=== PATIENT | male | born 1940 | race Caucasian/White ===

== ENCOUNTER 2025-04-29 08:31 | Day surgery (SDC) | payer MEDICARE, SELFPAY ==
--- OUTSIDE RECORDS SUMMARY | 2025-04-08 09:59 | XMS_ITS | Clinical Summary ---
Author Organization [facility] Address [address] [address] Phone Care Team Providers Care Cosmetic Dentist Name Role Phone Peter Vasquez MD Primary Care Provider [phone] Allergies No known active allergies Medications atorvastatin (LIPITOR) 20 mg tablet Take 1 tablet (20 mg total) by mouth. 10/22/2013 Active dilTIAZem CD (CARDIZEM CD) 180 mg 24 hr capsule Take 1 capsule (180 mg total) by mouth 1 (one) time each day. 09/19/2023 Active glipiZIDE (GLUCOTROL XL) 2.5 mg 24 hr tablet Take 1 tablet (2.5 mg total) by mouth. Active irbesartan (AVAPRO) 75 mg tablet Take 1 tablet (75 mg total) by mouth. 10/22/2013 Active metFORMIN (GLUCOPHAGE) 850 mg tablet Take 1 tablet (850 mg total) by mouth. 09/01/2017 Active warfarin (COUMADIN) 5 mg tablet Take 1 tablet (5 mg total) by mouth. 10/22/2013 Active Active Problems Problem Noted Date Diagnosed Date TIA (transient ischemic attack) 09/09/2023 Overview (08/28/2024): Last Assessment & Plan: Patient was hospitalized at [facility] for sudden onset of altered mental status. CT a showed no proximal occlusion or high-grade stenosis. MRI of the brain revealed no evidence of restricted diffusion to suggest acute infarct. Patient has since followed up with his primary care physician who has referred him to follow-up with neurology in the setting of ongoing forgetfulness, and unsteady gait. His last lipid profile in July 2023 revealed a total cholesterol of 132, triglycerides 55, HDL of 55 and LDL of 66. He will continue on his current dose of Lipitor 20mg. Assessment & Plan (09/26/2024 2:09 PM EST): Patient with atrial fibrillation that is rate controlled and anticoagulated. 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 Patient denies shortness of breath, dizziness, lightheadedness or syncope. He will monitor for symptoms listed above and call our office should he begin to notice increased frequency. Surveillance echocardiogram annually to evaluate progression of dilatation. Mitral regurgitation 01/29/2021 Overview (08/28/2024): Last Assessment & Plan: Patient has moderate to moderately severe mitral insufficiency his EF is decreased slightly but there has been no significant increase in LV end-diastolic or end-systolic diameters. We did wait 6 months continue medical therapy and reassess before we start discussing the possible need for intervention on the valve he is completely asymptomatic. Assessment & Plan (09/26/2024 2:09 PM EST): The patient's most recent echo in August shows a EF of 55% but is unable to accurately assess EF because of the A-fib. The patient's MR is moderate to severe with prolapse of the posterior leaflet. Pulmonary systolic pressures are acceptable. In some views the EF is less than 50% the left ventricular end diastolic diameter is 6.5 cm and systolic diameter is 5.2 cm were starting to see some dilatation of the left ventricle patient has severe mitral insufficiency secondary to prolapse of the posterior leaf of the mitral valve. His left ventricle is dilated and his EF is starting to fall. I have explained to the patient and his daughters who accompanied him that we start to see a decrease in LV systolic function especially less than 60% and dilatation of left ventricle in a patient with significant mitral regurgitation due to mitral valve prolapse the recommendation is to repair the valve before the patient becomes symptomatic because once the patient becomes symptomatic the repair does not necessarily bring the patient's ejection fraction and symptoms back to baseline it simply helps to prevent it from worsening I reinforced this. Unfortunately the patient's family has ramped down the patient's activity level and not letting him do anything so we really cannot tell me whether he is having a progressive symptomatology. The patient is getting a stress echo so I get some sense of what his exercise tolerance is this may be clouded by issues of orthopedic problems but at least they will give us some sense of his functional capacity. I still have recommended to them that they consider an elective repair of this valve before things worsen. Atrial fibrillation (CMS/HCC V24, CMS/HCC V28) 0 01/29/2021 Overview (08/28/2024): Last Assessment & Plan: Patient is in A-fib remains completely unaware of the arrhythmia Remains anticoagulated Assessment & Plan (09/26/2024 10:12 AM EST): Orders: ECG 12 lead Pulse oximetry, spot Stress echocardiogram (TTE) exercise with PRN contrast, bubble, strain, and 3D order panel; Future Encounters Date Type Department Care Team Description 02/08/[address] [facility] Cardiology [address] [place] [address] Peter Perez MD Atrial fibrillation, unspecified type (CMS/HCC V24, CMS/HCC V28) 02/01/[address] [facility] Cardiology [place] [address] [place] [address] Peter Perez MD Atrial fibrillation, unspecified type (CMS/HCC V24, CMS/HCC V28) 01/25/[address] [place] [phone] Peter Perez MD Atrial fibrillation, unspecified type (CMS/HCC V24, CMS/HCC V28) 01/22/2025 Lab Requisition [facility] [address] [place] [phone] Robert Hale MD Encounter for other general examination 01/18/2025 Lab [facility] [address] [place] [phone] Peter Perez MD Atrial fibrillation, unspecified type (CMS/HCC V24, CMS/HCC V28) 01/12/2025 Lab Requisition [facility] Lab [address] [place] [place] [address] Robert Hale MD Encounter for other general examination 01/11/2025 Lab [place] [address] [place] [address] Peter Perez MD Atrial fibrillation, unspecified type (CMS/HCC V24, CMS/HCC V28) from Last 3 Months Medical History Medical History Date Comments Atrial fibrillation (CMS/HCC V24, CMS/HCC V28) 01/29/2021 Last Assessment & Plan: Asmita ent is in A-fib remains completely unaware of the arrhythmia Remains anticoagulated Social History Tobacco Use Types Packs/Day Years Used Date Smoking Tobacco: Former Cigarettes Smokeless Tobacco: Former Tobacco Cessation:Counseling Given: Not Answered Alcohol Use Standard Drinks/Week Comments Yes 0 (1 standard drink = 0.6 oz pur e alcohol) Rarely Sex and Gender Information Value Date Recorded Sex Assigned at Male 10/12/2024 12:14 PM EST Legal Sex Male 8:53 PM EST Gender Identity Male 10/12/2024 12:14 PM EST Sexual Orientation Straight 10/12/2024 12 :14 PM EST Obstetrics History Last Filed Vital Signs Vital Sign Reading Time Taken Comments Blood Pressure 87/53 10/12/2024 4:45 PM EST Pulse 85 10/12/2024 4:45 PM EST Temperature 36.8 ??C (98.3 ??F) 10/12/2024 1 2:51 PM EST Respiratory Rate 14 10/12/2024 4:45 PM EST Oxygen Saturation 98% 10/12/2024 4:45 PM EST Inhaled Oxygen Concentration - - Weight 81.6 kg (179 lb 14.3 oz) 10/12/2024 4:20 PM EST Height 188 cm (6' 2.02 ) 10/12/2024 4:20 PM EST Body Mass Index 23.09 10/12/2024 4:20 PM EST Plan of Treatment Health Maintenance Due Date Last Done Comments Diabetes: Annual Foot Exam 1950 Diabetes: Annual Retina Eye Exam 1950 RSV Immunization Adult Patients (1 - 1-dose 75+ series) 2014 Zoster Vaccines (1 of 2) 08/13/2018 06/18/2018, 04/21 Cholesterol Screening (Lipid Panel) 10/30/2022 Depression Screening 10/30/2022 Falls Risk Assessment 10/30/2022 Social Influencers of Health Screening 10/30/2022 Medicare Annual Wellness Visit 08/17/2024 08/17/2023 Diabetes: Annual Urine Albumin-Creatinine Ratio (uACR) 09/26/2024 Diabetes: Blood Sugar Control Test (HGBA1C) 09/26/2024 COVID-19 Vaccine (5 - Pfizer risk season) 2025 07/30/2024, 08/26/2023, 08/03/2022, Additional history exists Diabetes: Annual GFR (Glomerular Filtration Rate) 01/22/2026 01/22/2025, 01/12/2025 Hypertension/CHF/CAD Annual BMP Blood Test 01/22/2026 01/22/2025, 01/12/2025 DTaP,Tdap,and Td Vaccines (5 - Td or Tdap) 02/03/2032 02/02/2022, 06/03/2006, 11/21/2005, Additional history exists Pneumococcal Vaccine: 50+ Years Completed 08/28/2019, 10/14/2015, 10/01/2014, Additional history exists Influenza Vaccine Completed 07/30/2024, , 08/03/2022, Additional history exists HIB Vaccines Aged Out No longer eligi ble based on patient's age to complete this topic HPV Vaccines Aged Out No longer eligi ble based on patient's age to complete this topic Hepatitis A Vaccines Aged Out No long er eligible based on patient's age to complete this topic Hepatitis B Vaccines Aged Out No long er eligible based on patient's age to complete this topic IPV Vaccines Aged Out No longer eligi ble based on patient's age to complete this topic MMR Vaccines Aged Out No longer eligi ble based on patient's age to complete this topic Meningococcal ACWY Vaccine Aged Out N o longer eligible based on patient's age to complete this topic Meningococcal B Vaccine Aged Out No l onger eligible based on patient's age to complete this topic RSV Immunization Patients Under 20 months Aged Out No longer eligible based on patient's age to complete this topic Varicella Vaccines Aged Out No longer eligible based on patient's age to complete this topic Procedures Procedure Name Priority Date/Time Associated Diagnosis Comments PROTHROMBIN TIME WITH INR Routine 02/04/2025 7:24 AM EDT Atrial fibrillation, unspecified type ([facility] V24, [facility] V28) COMPLETE BLOOD COUNT Routine 01/22/2025 5:12 AM EST Encounter for other general examination BASIC METABOLIC PANEL Routine 01/22/2025 5:12 AM EST Encounter for other general examination CBC WITH AUTO DIFFERENTIAL Routine 01/12/2025 6:30 AM EST Encounter for other general examination MAGNESIUM Routine 01/12/2025 6:30 AM EST Encounter for other general examination CBC AND DIFFERENTIAL Routine 01/12/2025 6:30 AM EST Encounter for other general examination COMPREHENSIVE METABOLIC PANEL Routine 01/12/2025 6:30 AM EST Encounter for other general examination from Last 3 Months Results * (ABNORMAL) Prothrombin time with INR (02/04/2025 7:24 AM EDT) International Normalized Ratio (INR) 3.6(H) 0.9 - 1.1 [facility] 1 Prothrombin Time 33.4(H) 9.2 - 11.4 SEC [facility] 1 Blood Venous blood specimen / Unknown 02/04/2025 7:24 AM EDT 02/04/2025 Narrative [facility] 1 - 02/04/2025 4:39 PM EDT Performed at: ??[address] - [address] ??[id number] Jewelry Sorter: Simba Cadena MD, Phone: ??[phone] us Peter Perez MD LAB BLOOD ORDERABLES Final Res ult [facility] 1 * (ABNORMAL) Complete blood count (01/22/2025 5:12 AM EST) WBC 4.0(L) 4.8 - 10.8 K/mcL LAB HEMETOLOGY METHOD 01/22/2025 10:51 AM [facility] RBC 3.10(L) 4.50 - 5.50 M/mcL LAB HEMETOLOGY METHOD 01/22/2025 10:51 AM [facility] LAB Hemoglobin 10.6(L) 13.5 - 17.5 g/dL LAB HEMETOLOGY METHOD 01/22/2025 10:51 AM [facility] LAB Hematocrit 32.3(L) 42.0 - 54.0 % LAB HEMETOLOGY METHOD 01/22/2025 10:51 AM [facility] LAB MCV 105.9(H) 79.0 - 98.0 FL LAB HEMETOLOGY METHOD 01/22/2025 10:51 AM [facility] LAB MCH 34.8(H) 27.0 - 32.0 pcg LAB HEMETOLOGY METHOD 01/22/2025 10:51 AM [facility] LAB MCHC 32.8 32.0 - 37.0 g/dL LAB HEMETOLOGY METHOD 01/22/2025 10:51 AM [facility] LAB RDW 13.1 11.0 - 15.0 % LAB HEMETOLOGY METHOD 01/22/2025 10:51 AM [facility] Platelets 171 130 - 400 K/mcL LAB HEMETOLOGY METHOD 01/22/2025 10:51 AM [facility] LAB MPV 9.9 7.0 - 11.0 FL LAB HEMETOLOGY METHOD 01/22/2025 10:51 AM EST [facility] NRBC 0.0 <1.0 % LAB HEMETOLOGY METHOD 01/22/2025 10:51 AM EST [facility] NRBC Absolute 0.00 <0.10 K/mcL LAB HEMETOLOGY METHOD 01/22/2025 10:51 AM EST [facility] Blood Venous blood specimen / Unknown Venipuncture / Unknown 01/22/2025 5:12 AM EST 01/22/2025 9:49 AM EST us Robert Hale MD LAB BLOOD ORDERABLES Final Res ult [facility] [address] [place] [address], * (ABNORMAL) Basic metabolic panel (01/22/2025 5:12 AM EST) Sodium 139 133 - 145 mmol/L LAB CHEMISTRY METHOD 01/22/2025 10:52 AM [facility] Potassium 4.5 3.5 - 5.5 mmol/L LAB CHEMISTRY METHOD 01/22/2025 10:52 AM [facility] Chloride 107 96 - 110 mmol/L LAB CHEMISTRY METHOD 01/22/2025 10:52 AM [facility] CO2 22 21 - 32 mmol/L LAB CHEMISTRY METHOD 01/22/2025 10:52 AM [facility] Anion Gap 10 3 - 11 LAB CHEMISTRY METHOD 01/22/2025 10:52 AM [facility] Glucose 104(H) 70 - 100 mg/dL LAB CHEMISTRY METHOD 01/22/2025 10:52 AM [facility] BUN 21 5 - 25 mg/dL LAB CHEMISTRY METHOD 01/22/2025 10:52 AM [facility] Creatinine 1.10 0.70 - 1.30 mg/dL LAB CHEMISTRY METHOD 01/22/2025 10:52 AM [facility] LAB eGFR 66 >=60 mL/min/1. 73m2 LAB CHEMISTRY METHOD 01/22/2025 10:52 AM [facility] LAB Comment:Calculation based on the??Chronic Kidney Disease Epidemiology Collaboration (CKD-EPI) equation refit??without adjustment for race. BUN/Creatinine Ratio 19.1 LAB CHEMISTRY METHOD 01/22/2025 10:52 AM [facility] Calcium 8.8 8.5 - 10.5 mg/dL LAB CHEMISTRY METHOD 01/22/2025 10:52 AM [facility] Blood Venous blood specimen / Unknown Venipuncture / Unknown 01/22/2025 5:12 AM EST 01/22/2025 9:49 AM EST us Robert Hale MD LAB BLOOD ORDERABLES Final Res ult [facility] [address] [place] [address], * (ABNORMAL) CBC auto differential (01/12/2025 6:30 AM EST) WBC 5.7 4.8 - 10.8 K/mcL LAB HEMETOLOGY METHOD 01/12/2025 11:44 AM [facility] RBC 3.40(L) 4.50 - 5.50 M/mcL LAB HEMETOLOGY METHOD 01/12/2025 11:44 AM [facility] Hemoglobin 11.5(L) 13.5 - 17.5 g/dL LAB HEMETOLOGY METHOD 01/12/2025 11:44 AM [facility] Hematocrit 35.1(L) 42.0 - 54.0 % LAB HEMETOLOGY METHOD 01/12/2025 11:44 AM [facility] LAB MCV 104.5(H) 79.0 - 98.0 FL LAB HEMETOLOGY METHOD 01/12/2025 11:44 AM [facility] MCH 34.2(H) 27.0 - 32.0 pcg LAB HEMETOLOGY METHOD 01/12/2025 11:44 AM [facility] LAB MCHC 32.8 32.0 - 37.0 g/dL LAB HEMETOLOGY METHOD 01/12/2025 11:44 AM [facility] RDW 12.5 11.0 - 15.0 % LAB HEMETOLOGY METHOD 01/12/2025 11:44 AM [facility] Platelets 120(L) 130 - 400 K/mcL LAB HEMETOLOGY METHOD 01/12/2025 11:44 AM [facility] MPV 10.9 7.0 - 11.0 FL LAB HEMETOLOGY METHOD 01/12/2025 11:44 AM [facility] NRBC 0.0 <1.0 % LAB HEMETOLOGY METHOD 01/12/2025 11:44 AM [facility] NRBC Absolute 0.00 <0.10 K/mcL LAB HEMETOLOGY METHOD 01/12/2025 11:44 AM [facility] Neutrophils Relative 71.6 % LAB HEMETOLOGY METHOD 01/12/2025 11:44 AM [facility] Lymphocytes Relative 11.1 % LAB HEMETOLOGY METHOD 01/12/2025 11:44 AM [facility] Monocytes Relative 10.2 % LAB HEMETOLOGY METHOD 01/12/2025 11:44 AM [facility] Eosinophils Relative 6.2 % LAB HEMETOLOGY METHOD 01/12/2025 11:44 AM [facility] Basophils Relative 0.7 % LAB HEMETOLOGY METHOD 01/12/2025 11:44 AM [facility] Immature Granulocytes Relative 0.2 % LAB HEMETOLOGY METHOD 01/12/2025 11:44 AM EST [facility] Neutrophils Absolute 4.05 1.50 - 7.00 K/[facility] LAB HEMETOLOGY METHOD 01/12/2025 11:44 AM [facility] Lymphocytes Absolute 0.63(L) 1.00 - 5.00 K/mcL LAB HEMETOLOGY METHOD 01/12/2025 11:44 AM EST [facility] Monocytes Absolute 0.58 0.20 - 1.00 K/[facility] LAB HEMETOLOGY METHOD 01/12/2025 11:44 AM EST [facility] Eosinophils Absolute 0.35 0.00 - 0.50 K/[facility] LAB HEMETOLOGY METHOD 01/12/2025 11:44 AM EST [facility] Basophils Absolute 0.04 0.00 - 0.20 K/mcL LAB HEMETOLOGY METHOD 01/12/2025 11:44 AM EST [facility] Immature Granulocytes Absolute 0.01 0.00 - 0.03 K/mcL LAB HEMETOLOGY METHOD 01/12/2025 11:44 AM EST [facility] Blood Venous blood specimen / Unknown Venipuncture / Unknown 01/12/2025 6:30 AM EST 01/12/2025 9:59 AM EST us Robert Hale MD LAB BLOOD ORDERABLES Final Res ult [facility]) [facility] [address] [place] [address], * Magnesium (01/12/2025 6:30 AM EST) Magnesium 1.9 1.9 - 2.6 mg/dL LAB CHEMISTRY METHOD 01/12/2025 11:56 AM EST [facility] Blood Venous blood specimen / Unknown Venipuncture / Unknown 01/12/2025 6:30 AM EST 01/12/2025 9:59 AM EST us Robert Hale MD LAB BLOOD ORDERABLES Final Res ult [facility] [address] [place] [address], [place] [phone] * (ABNORMAL) Comprehensive metabolic panel (01/12/2025 6:30 AM EST) Sodium 138 133 - 145 mmol/L LAB CHEMISTRY METHOD 01/12/2025 11:56 AM [facility] Potassium 3.8 3.5 - 5.5 mmol/L LAB CHEMISTRY METHOD 01/12/2025 11:56 AM [facility] Chloride 107 96 - 110 mmol/L LAB CHEMISTRY METHOD 01/12/2025 11:56 AM [facility] CO2 22 21 - 32 mmol/L LAB CHEMISTRY METHOD 01/12/2025 11:56 AM [facility] Anion Gap 9 3 - 11 LAB CHEMISTRY METHOD 01/12/2025 11:56 AM [facility] Glucose 122(H) 70 - 100 mg/dL LAB CHEMISTRY METHOD 01/12/2025 11:56 AM [facility] BUN 18 5 - 25 mg/dL LAB CHEMISTRY METHOD 01/12/2025 11:56 AM [facility] Creatinine 0.81 0.70 - 1.30 mg/dL LAB CHEMISTRY METHOD 01/12/2025 11:56 AM [facility] LAB eGFR 86 >=60 mL/min/1. 73m2 LAB CHEMISTRY METHOD 01/12/2025 11:56 AM [facility] LAB Comment:Calculation based on the??Chronic Kidney Disease Epidemiology Collaboration (CKD-EPI) equation refit??without adjustment for race. BUN/Creatinine Ratio 22.2 LAB CHEMISTRY METHOD 01/12/2025 11:56 AM [facility] Calcium 8.6 8.5 - 10.5 mg/dL LAB CHEMISTRY METHOD 01/12/2025 11:56 AM [facility] AST (SGOT) 31 10 - 42 unit/L LAB CHEMISTRY METHOD 01/12/2025 11:56 AM [facility] ALT (SGPT) 24 10 - 60 unit/L LAB CHEMISTRY METHOD 01/12/2025 11:56 AM [facility] Alkaline Phosphatase 97 42 - 121 unit/L LAB CHEMISTRY METHOD 01/12/2025 11:56 AM [facility] Total Protein 5.5(L) 6.0 - 8.0 g/dL LAB CHEMISTRY METHOD 01/12/2025 11:56 AM [facility] Albumin 3.1(L) 3.2 - 5.0 g/dL LAB CHEMISTRY METHOD 01/12/2025 11:56 AM [facility] Total Bilirubin 0.8 0.0 - 1.4 mg/dL LAB CHEMISTRY METHOD 01/12/2025 11:56 AM [facility] Blood Venous blood specimen / Unknown Venipuncture / Unknown 01/12/2025 6:30 AM EST 01/12/2025 9:59 AM EST us Robert Hale MD LAB BLOOD ORDERABLES Final Res ult [facility] [address] [place] [address], from Last 3 Months Insurance MEDICARE [employer] Advance Directives Documents on File Type Date Recorded 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
--- OUTSIDE RECORDS SUMMARY | 2025-04-08 09:59 | XMS_ITS | Encounter Summary ---
Author Organization [facility] Address [address] [place] [address] Care Team Providers Care Director Emergency Services Name Role Phone Peter Vasquez MD Primary Care Provider [phone] Encounter Details Date Type Department Care Team (Late st Contact Info) Description 01/12/2025 Lab Requisition [facility] - Main Lab [address] [facility] [place] [phone] Robert Hale MD [address] [place] [address] Encounter for other general examination Social History Tobacco Use Types Packs/Day Years Used Date Smoking Tobacco: Former Cigarettes Smokeless Tobacco: Former Alcohol Use Standard Drinks/Week Comments Yes 0 (1 standard drink = 0.6 oz pur e alcohol) Rarely Sex and Gender Information Value Date Recorded Sex Assigned at Male 10/12/2024 12:14 PM EST Legal Sex Male 8:53 PM EST Gender Identity Male 10/12/2024 12:14 PM EST Sexual Orientation Straight 10/12/2024 12 :14 PM EST documented as of this encounter Plan of Treatment Not on file documented as of this encounter Procedures Procedure Name Priority Date/Time Associated Diagnosis Comments CBC WITH AUTO DIFFERENTIAL Routine 01/12/2025 6:30 AM EST Encounter for other general examination CBC AND DIFFERENTIAL Routine 01/12/2025 6:30 AM EST Encounter for other general examination MAGNESIUM Routine 01/12/2025 6:30 AM EST Encounter for other general examination COMPREHENSIVE METABOLIC PANEL Routine 01/12/2025 6:30 AM EST Encounter for other general examination documented in this encounter Results * (ABNORMAL) CBC auto differential (01/12/2025 6:30 AM EST) WBC 5.7 4.8 - 10.8 K/mcL LAB HEMETOLOGY METHOD 01/12/2025 11:44 AM [facility] RBC 3.40(L) 4.50 - 5.50 M/mcL LAB HEMETOLOGY METHOD 01/12/2025 11:44 AM [facility] Hemoglobin 11.5(L) 13.5 - 17.5 g/dL LAB HEMETOLOGY METHOD 01/12/2025 11:44 AM [facility] Hematocrit 35.1(L) 42.0 - 54.0 % LAB HEMETOLOGY METHOD 01/12/2025 11:44 AM [facility] MCV 104.5(H) 79.0 - 98.0 FL LAB HEMETOLOGY METHOD 01/12/2025 11:44 AM [facility] MCH 34.2(H) 27.0 - 32.0 pcg LAB HEMETOLOGY METHOD 01/12/2025 11:44 AM [facility] MCHC 32.8 32.0 - 37.0 g/dL LAB HEMETOLOGY METHOD 01/12/2025 11:44 AM [facility] RDW 12.5 11.0 - 15.0 % LAB HEMETOLOGY METHOD 01/12/2025 11:44 AM [facility] Platelets 120(L) 130 - 400 K/mcL LAB HEMETOLOGY METHOD 01/12/2025 11:44 AM [facility] MPV 10.9 7.0 - 11.0 FL LAB HEMETOLOGY METHOD 01/12/2025 11:44 AM [facility] NRBC 0.0 <1.0 % LAB HEMETOLOGY METHOD 01/12/2025 11:44 AM [facility] NRBC Absolute 0.00 <0.10 K/mcL LAB HEMETOLOGY METHOD 01/12/2025 11:44 AM [facility] Neutrophils Relative 71.6 % LAB HEMETOLOGY METHOD 01/12/2025 11:44 AM [facility] Lymphocytes Relative 11.1 % LAB HEMETOLOGY METHOD 01/12/2025 11:44 AM [facility] Monocytes Relative 10.2 % LAB HEMETOLOGY METHOD 01/12/2025 11:44 AM [facility] Eosinophils Relative 6.2 % LAB HEMETOLOGY METHOD 01/12/2025 11:44 AM [facility] Basophils Relative 0.7 % LAB HEMETOLOGY METHOD 01/12/2025 11:44 AM [facility] Immature Granulocytes Relative 0.2 % LAB HEMETOLOGY METHOD 01/12/2025 11:44 AM [facility] Neutrophils Absolute 4.05 1.50 - 7.00 K/mcL LAB HEMETOLOGY METHOD 01/12/2025 11:44 AM [facility] Lymphocytes Absolute 0.63(L) 1.00 - 5.00 K/mcL LAB HEMETOLOGY METHOD 01/12/2025 11:44 AM [facility] Monocytes Absolute 0.58 0.20 - 1.00 K/mcL LAB HEMETOLOGY METHOD 01/12/2025 11:44 AM [facility] Eosinophils Absolute 0.35 0.00 - 0.50 K/mcL LAB HEMETOLOGY METHOD 01/12/2025 11:44 AM [facility] Basophils Absolute 0.04 0.00 - 0.20 K/mcL LAB HEMETOLOGY METHOD 01/12/2025 11:44 AM EST [facility] Immature Granulocytes Absolute 0.01 0.00 - 0.03 K/mcL LAB HEMETOLOGY METHOD 01/12/2025 11:44 AM EST [facility] Blood Venous blood specimen / Unknown Venipuncture / Unknown 01/12/2025 6:30 AM EST 01/12/2025 9:59 AM EST Robert Hale MD LAB BLOOD ORDERABLES Final Res ult Performing Organization Address City/[facility]/ZIP Co de Phone Number [facility] [address] [place] [address], [place] [phone] * Magnesium (01/12/2025 6:30 AM EST) Magnesium 1.9 1.9 - 2.6 mg/dL LAB CHEMISTRY METHOD 01/12/2025 11:56 AM EST [facility] Blood Venous blood specimen / Unknown Venipuncture / Unknown 01/12/2025 6:30 AM EST 01/12/2025 9:59 AM EST Robert Hale MD LAB BLOOD ORDERABLES Final Res ult [facility] [address] [place] [address], [place] [phone] * (ABNORMAL) Comprehensive metabolic panel (01/12/2025 6:30 AM EST) Sodium 138 133 - 145 mmol/L LAB CHEMISTRY METHOD 01/12/2025 11:56 AM EST [facility] Potassium 3.8 3.5 - 5.5 mmol/L LAB CHEMISTRY METHOD 01/12/2025 11:56 AM EST [facility] Chloride 107 96 - 110 mmol/L LAB CHEMISTRY METHOD 01/12/2025 11:56 AM EST [facility] CO2 22 21 - 32 mmol/L LAB CHEMISTRY METHOD 01/12/2025 11:56 AM [facility] Anion Gap 9 3 - 11 LAB CHEMISTRY METHOD 01/12/2025 11:56 AM [facility] Glucose 122(H) 70 - 100 mg/dL LAB CHEMISTRY METHOD 01/12/2025 11:56 AM [facility] BUN 18 5 - 25 mg/dL LAB CHEMISTRY METHOD 01/12/2025 11:56 AM [facility] Creatinine 0.81 0.70 - 1.30 mg/dL LAB CHEMISTRY METHOD 01/12/2025 11:56 AM [facility] eGFR 86 >=60 mL/min/1. 73m2 LAB CHEMISTRY METHOD 01/12/2025 11:56 AM [facility] Comment:Calculation based on the??Chronic Kidney Disease Epidemiology Collaboration (CKD-EPI) equation refit??without adjustment for race. BUN/Creatinine Ratio 22.2 LAB CHEMISTRY METHOD 01/12/2025 11:56 AM [facility] Calcium 8.6 8.5 - 10.5 mg/dL LAB CHEMISTRY METHOD 01/12/2025 11:56 AM [facility] AST (SGOT) 31 10 - 42 unit/L LAB CHEMISTRY METHOD 01/12/2025 11:56 AM [facility] ALT (SGPT) 24 10 - 60 unit/L LAB CHEMISTRY METHOD 01/12/2025 11:56 AM [facility] Alkaline Phosphatase 97 42 - 121 unit/L LAB CHEMISTRY METHOD 01/12/2025 11:56 AM [facility] Total Protein 5.5(L) 6.0 - 8.0 g/dL LAB CHEMISTRY METHOD 01/12/2025 11:56 AM [facility] Albumin 3.1(L) 3.2 - 5.0 g/dL LAB CHEMISTRY METHOD 01/12/2025 11:56 AM EST [facility] Total Bilirubin 0.8 0.0 - 1.4 mg/dL LAB CHEMISTRY METHOD 01/12/2025 11:56 AM EST [facility] Blood Venous blood specimen / Unknown Venipuncture / Unknown 01/12/2025 6:30 AM EST 01/12/2025 9:59 AM EST us Robert Hale MD LAB BLOOD ORDERABLES Final Res ult [facility] [address] [place] [address], [place] [phone] documented in this encounter Visit Diagnoses Diagnosis Encounter for other general examination documented in this encounter Care Teams Director Emergency Services Relationship Specialty Start Date End Date Peter Vasquez MD [address] [place] [phone] PCP - General 04/03/13 documented as of this encounter
--- OUTSIDE RECORDS SUMMARY | 2025-04-08 09:59 | XMS_ITS | Continuity of Care Document ---
Author Organization [facility] Address [address] [place] [id number] [facility] Name Relationship Address Phone LEONA PRAKASH Personal Relationship Unknown Unavailable LEATHA PRAKASH Personal Relationship Unknown Unavailable SMILEY HAWLEY child Unknown Unavailable LEONA PRAKASH spouse Unknown Unavail able JANET CHRISTINE child Unknown Unavailable LEATHA PRAKASH Personal Relationship Unknown Unavailable LEATHA PRAKASH Personal Relationship Unknown Unavailable LEONA PRAKASH Personal Relationship Unknown Unavailable LEONA PRAKASH Personal Relationship Unknown Usha vailable Care Team Providers Care Job Placement Officer Name Role Phone Peter Vasquez MD Primary Care Physician Encounter [facility] Date(s): 03/07/25 - 04/06/25 [facility] [address] [place] [id number]- Attending Physician: Foreign Ingram Admitting Physician: Foreign Ingram Referring Physician: Foreign Ingram Encounter Type: Triage Allergies, Adverse Reactions, Alerts No Known Allergies Immunizations Given and Recorded Vaccine Date Status Refusal Reason tetanus-diphtheria toxoids (Td) 06/03/06 Given Medications amoxicillin 500 mg oral capsule 4 capsule = 2,000 mg, By Mouth, Once, given 1 hour prior to the dental cleaning or procedure, # 4 capsule, 0 Refills, Soft Stop, 03/06/25 9:50:00 AM EDT, [id number], Partial fill uponpatient request if the prescription is for a schedule II opioid drug., 188, cm, 03/06/25 9:28:00 EDT, Height, 82, kg, 02/23/25 19:15:00 EDT, Dry Weight Start Date: 03/06/25 Status: Ordered Quantity: 4.0 Unit: capsule Repeat number: 1 Indication: Other specified postprocedural states glipiZIDE 2.5 mg oral tablet, extended release 1 tablet = 2.5 mg, By Mouth, Daily, # 30 tablet, 0 Refills, Maintenance, 08/17/23 12:52:00 PM EDT, ER Tablet, Partial fill upon patient request if the prescription is for a schedule II opioid drug. Start Date: 08/17/23 Status: Ordered Quantity: 30.0 Unit: tablet Repeat number: 1 Lipitor 20 mg oral tablet 1 tablet = 20 mg, By Mouth, Daily, # 30 tablet, 0 Refills, Maintenance, 03/20/15 9:36:34 AM EDT, Tablet Start Date: 03/20/15 Status: Ordered Quantity: 30.0 Unit: tablet Repeat number: 1 metFORMIN 850 mg oral tablet 1 tablet = 850 mg, By Mouth, 2 times a day, # 180 tablet, 0 Refills, Maintenance, 02/07/25 4:53:00 AM EDT, Tablet, Partial fill upon patient request if the prescription is for a schedule II opioid drug. Start Date: 02/07/25 Status: Ordered Quantity: 180.0 Unit: tablet Repeat number: 1 Metoprolol Succinate ER 25 mg oral tablet, extended release 25 mg, By Mouth, 2 times a day, Hold for Systolic BP less than 90., # 120 tablet, Refills 0, Tot. Refills 0, Maintenance, 02/27/25 3:28:00 PM EDT, Route to Pharmacy Electronically, [id number], Partial fill upon patient request if the prescription is for a schedule II opioid drug., 188, cm, 02/27/25 13:47:00 EDT, Height, 82, kg, 02/23/25 19:15:00 EDT, Dry Weight Start Date: 02/27/25 Status: Ordered Quantity: 120.0 Unit: tablet Repeat number: 1 midodrine 5 mg oral tablet 5 mg, By Mouth, 3 times a day, Hold for systolic Blood pressure more than 100., # 90 tablet, Refills 0, Tot. Refills 0, Maintenance, 02/27/25 3:29:00 PM EDT, Route to Pharmacy Electronically, [facility] #[id number], Partial fill upon patient request if the prescription is for a schedule II opioid drug., 188, cm, 02/27/25 13:47:00 EDT, Height, 82, kg, 02/23/25 19:15:00 EDT, Dry Weight Start Date: 02/27/25 Status: Ordered Quantity: 90.0 Unit: tablet Repeat number: 1 spironolactone 25 mg oral tablet 25 mg, 1, tablet, By Mouth, Daily, # 90 tablet, Refills 3, Tot. Refills 3, Maintenance, 03/07/25 3:14:00 PM EDT, Route to Pharmacy Electronically, [facility] #[id number], Partial fill upon patient request if the prescription is for a schedule II opioid drug., 188, cm, 03/07/25 14:25:00 EDT, Height, 82, kg, 02/23/25 19:15:00 EDT, Dry Weight Start Date: 03/07/25 Stop Date: 03/02/26 Status: Ordered Quantity: 90.0 Unit: tablet Repeat number: 4 torsemide 20 mg oral tablet 1 tablet = 20 mg, By Mouth, 2 times a day, # 180 tablet, 3 Refills, Maintenance, 03/20/25 9:03:00 AMEDT, Tablet, [facility] #[id number], Partial fill upon patient request if the prescription is for a schedule II opioid drug., 188, cm, 03/20/25 8:36:00 EDT, Height, 82, kg, 02/23/25 19:15:00 EDT, Dry Weight Start Date: 03/20/25 Stop Date: 03/15/26 Status: Ordered Quantity: 180.0 Unit: tablet Repeat number: 4 warfarin 1 mg oral tablet See Instructions, take 1-5 tablets by mouth daily as directed by the coumadin clinic, # 150 tablet,0 Refills, Maintenance, 01/22/25 3:39:00 PM EST, Tablet, [facility] #[id number], Partial fill upon patient request if the prescription is for a schedule II opioid drug., 187, cm, 01/10/25 14:25:00EST, Height, 82, kg, 01/07/25 21:27:00 EST, Dry Weight Start Date: 01/22/25 Status: Ordered Quantity: 150.0 Unit: tablet Repeat number: 1 Indication: Unspecified atrial fibrillation warfarin 5 mg oral tablet 90 each, 0 Refill(s), TAKE 1 TABLET BY MOUTH DAILY, 0 Refills, 02/07/25 11:28:00 AM EDT, Partial fill upon patient request if the prescription is for a schedule II opioid drug. Start Date: 02/07/25 Status: Ordered Repeat number: 1 Problem List Condition Confirmation Course Effective Dates Status H ealth Status Informant Abnormal radiologic density Confirmed Active A-fib Confirmed Active Chronic HFrEF (heart failure with reduced ejection fraction) Confirmed Active CAD in [place] artery Confirmed Active Diabetes mellitus type 2 Confirmed Active On warfarin therapy Confirmed Active S/P mitral valve clip implantation Confirmed Active HLD (hyperlipidemia) Confirmed Active Macrocytic anemia Confirmed Active Severe mitral regurgitation Confirmed Active Social History Social History Type Response Smoking Status Never smoker; Tobacc o user in household: No entered on: 03/20/15 Sex Sex Representation Male (finding) Patient Care team information Care Team Personnel Name: Hannah Solis Position: S RN Supv Member Role: Primary Care Nurse Name: Caryn Rao RN Position: S RN Member Role: Primary Care Nurse Name: Gaby Galicia RN Position: S RN Member Role: Primary Care Nurse Name: Muriel Roca RN Position: S RN Member Role: Primary Care Nurse Name: Chaparro Bartlett RN Position: S RN Member Role: Primary Care Nurse Name: Peter Vasquez MD Position: [facility] Physician - Primary Care Member Role: PCP Address: [address] [place] [address] Telecom: Name: Leona Hernandez Position: [facility] linemarker Member Role: Air Grinder Name: Hilary Lopez RN Position: S RN Member Role: Primary Care Nurse Name: Brisa Davis RN Position: S RN Member Role: Primary Care Nurse Name: Maryjane Velasquez RN Position: S RN Member Role: Primary Care Nurse Care Team Related Persons Name: JANET CHRISTINE Name: LEONA PRAKASH Insurance Providers Guarantor name: JOHN PAUL DWAIN Health Plan Information #: 1 Payer: MEDICARE PART B OUTPT Member Number: NA Policy Number: NA Group Number: NA Health Plan Information #: 2 Payer: [employer] SUP Member Number: NA Policy Number: NA Group Number: NA
--- OUTSIDE RECORDS SUMMARY | 2025-04-08 09:59 | XMS_ITS | Encounter Summary ---
Author Organization [facility] Address [address] [place] [address] Care Team Providers Care Box Office Clerk Name Role Phone Peter Vasquez MD Primary Care Provider [phone] Encounter Details Date Type Department Care Team (Late st Contact Info) Description 01/22/[address] [facility] - Main Lab [address] [facility] [place] [phone] Robert Hale MD [address] [place] [address] Encounter for other general examination Social History [...] Procedure Name Priority Date/Time Associated Diagnosis Comments COMPLETE BLOOD COUNT Routine 01/22/2025 5:12 AM EST Encounter for other general examination BASIC METABOLIC PANEL Routine 01/22/2025 5:12 AM EST Encounter for other general examination documented in this encounter Results * (ABNORMAL) Complete blood count (01/22/2025 5:12 AM EST) [facility] Signature WBC 4.0(L) 4.8 - 10.8 K/mcL LAB HEMETOLOGY METHOD 01/22/2025 10:51 AM [facility] RBC 3.10(L) 4.50 - 5.50 M/mcL LAB HEMETOLOGY METHOD 01/22/2025 10:51 AM [facility] Hemoglobin 10.6(L) 13.5 - 17.5 g/dL LAB HEMETOLOGY METHOD 01/22/2025 10:51 AM [facility] Hematocrit 32.3(L) 42.0 - 54.0 % LAB HEMETOLOGY METHOD 01/22/2025 10:51 AM [facility] MCV 105.9(H) 79.0 - 98.0 FL LAB HEMETOLOGY METHOD 01/22/2025 10:51 AM [facility] MCH 34.8(H) 27.0 - 32.0 pcg LAB HEMETOLOGY METHOD 01/22/2025 10:51 AM [facility] MCHC 32.8 32.0 - 37.0 g/dL LAB HEMETOLOGY METHOD 01/22/2025 10:51 AM [facility] RDW 13.1 11.0 - 15.0 % LAB HEMETOLOGY METHOD 01/22/2025 10:51 AM [facility] Platelets 171 130 - 400 K/mcL LAB HEMETOLOGY METHOD 01/22/2025 10:51 AM [facility] MPV 9.9 7.0 - 11.0 FL LAB HEMETOLOGY METHOD 01/22/2025 10:51 AM [facility] NRBC 0.0 <1.0 % LAB HEMETOLOGY METHOD 01/22/2025 10:51 AM [facility] NRBC Absolute 0.00 <0.10 K/mcL LAB HEMETOLOGY METHOD 01/22/2025 10:51 AM [facility] Blood Venous blood specimen / Unknown Venipuncture / Unknown 01/22/2025 5:12 AM EST 01/22/2025 9:49 AM EST us Robert Hale MD LAB BLOOD ORDERABLES Final Res ult [facility] [address] [place] [address], [place] [phone] * (ABNORMAL) Basic metabolic panel (01/22/2025 5:12 AM EST) Sodium 139 133 - 145 mmol/L LAB CHEMISTRY METHOD 01/22/2025 10:52 AM [facility] Potassium 4.5 3.5 - 5.5 mmol/L LAB CHEMISTRY METHOD 01/22/2025 10:52 AM [facility] Chloride 107 96 - 110 mmol/L LAB CHEMISTRY METHOD 01/22/2025 10:52 AM [facility] CO2 22 21 - 32 mmol/L LAB CHEMISTRY METHOD 01/22/2025 10:52 AM [facility] Anion Gap 10 3 - 11 LAB CHEMISTRY METHOD 01/22/2025 10:52 AM [facility] Glucose 104(H) 70 - 100 mg/dL LAB CHEMISTRY METHOD 01/22/2025 10:52 AM [facility] BUN 21 5 - 25 mg/dL LAB CHEMISTRY METHOD 01/22/2025 10:52 AM [facility] Creatinine 1.10 0.70 - 1.30 mg/dL LAB CHEMISTRY METHOD 01/22/2025 10:52 AM [facility] eGFR 66 >=60 mL/min/1. 73m2 LAB CHEMISTRY METHOD 01/22/2025 10:52 AM [facility] Comment:Calculation based on the??Chronic Kidney Disease Epidemiology Collaboration (CKD-EPI) equation refit??without adjustment for race. BUN/Creatinine Ratio 19.1 LAB CHEMISTRY METHOD 01/22/2025 10:52 AM EST [facility] Calcium 8.8 8.5 - 10.5 mg/dL LAB CHEMISTRY METHOD 01/22/2025 10:52 AM EST [facility] Blood Venous blood specimen / Unknown Venipuncture / Unknown 01/22/2025 5:12 AM EST 01/22/2025 9:49 AM EST us Robert Hale MD LAB BLOOD ORDERABLES Final Res ult [facility] [address] [place] [address], [place] [phone] documented in this encounter Visit Diagnoses Diagnosis Encounter for other general examination documented in this encounter Care Teams Box Office Clerk Relationship Specialty Start Date End Date Peter Vasquez MD [address] [place] [phone] PCP - General 04/03/13 documented as of this encounter
[2025-04-24 10:40] VITALS: BMI 23.0
[2025-04-29] MEDS: Cyclopentolate 1 % Ophth Sol 2 ML DRPBTL 1 DROP EYE-RIGHT ×3 (08:52→09:02)
[2025-04-29] MEDS: Phenylephrine HCL 2.5% Oph SoL 2 ML BOTTLE 1 DROP EYE-RIGHT ×3 (08:52→09:02)
[2025-04-29] MEDS: Tetracaine HCl/PF 0.5% Oph Sol 4 ML DROPS 1 DROP EYE-RIGHT (08:52)
[2025-04-29] MEDS: Tropicamide 1 % Ophth Sol 3 ML BTL 1 DROP EYE-RIGHT ×3 (08:53→09:02)
[2025-04-29] MEDS: Ketorolac Tromethamine 0.5% Op 5 ML DROPS 1 DROP EYE-RIGHT ×3 (08:53→09:02)
[2025-04-29 09:03] LABS: Glucose, Whole Blood 131 mg/dL (60-115)
[2025-04-29 09:10] VITALS: BP 104/62; PULSE 92; RESP 18; TEMP 36.6; O2SAT 100
--- NOTE | 2025-04-29 09:49 | MHC.SHP ---
Pre-Procedural Eval Section A - 24 Hr Update-Section A only Date of Service: 04/29/25 The patient is an INPATIENT: No Changes since office visit: No Cold of Flu in the past 2 weeks, No New Medical Problems, No Changes in Medication and No Patient answered all questions The patient has been examined within 24 hours of the surgical procedure. The History & Physical has been completed within 30 days and I have reviewed it.: Yes Section B - Complete if H&P > 30 days Chief Complaint: Age-related nuclear cataract, right eye Allergies: Allergies Allergy/AdvReac Type Severity Reaction Status Date / Time No Known Allergies Allergy Verified 04/29/25 09:12 Plan Diagnosis/Plan: Unchanged I have reviewed the history and physical and performed a pertinent physical examination on my patient. No changes have occurred unless specified. Time Spent With Patient Time: Total time managing care of this patient today ____ minutes.
--- NOTE | 2025-04-29 09:50 | HO.PNOPHT ---
Ophthalmology Procedure Procedure Date of Service: 04/29/25 Ophthalmology Viscoelastic: Healon Duet Dual Pack Pro Ophthalmology Lenses: IOL Acrysof MP - [id number] (20) Procedure Notes: PREOPERATIVE DIAGNOSIS: Decreased visual acuity right eye secondary to cataract POSTOPERATIVE DIAGNOSIS: Same PROCEDURE: Right cataract extraction with intraocular lens insertion SURGEON: Freeman Munoz M.D. ANESTHESIA: Topical ESTIMATED BLOOD LOSS: None COMPLICATIONS: None After obtaining informed consent, the patient was brought to the operating room suite and placed in the supine position. After adequate sedation per anesthesia, topical drops of Tetracaine were given to the right eye. The eye was then prepped and draped in the usual sterile fashion. The operating room microscope was then positioned over the operative eye and a lid speculum placed. A paracentesis was created. Intracamal Lidocaine 1% MPF was instilled.Viscoelastic was then instilled into the anterior chamber. A three plane incision was then created temporally, utilizing a 2.85 mm keratome. Capsulotomy forceps were then utilized to create a circular tear capsulotomy. Hydrodissection and hydrodelineation were carried out until adequate mobilization of the nucleus occurred. Phacoemulsification was then utilized to remove the dense central nucleus followed by removal of the cortical material utilizing the automated aspiration irrigation unit. Viscoelastic was instilled into the posterior capsular bag followed by placement of a posterior chamber intraocular lens without difficulty. The residual Viscoelastic was then removed utilizing the automated IA machine. The wound was checked and found to be watertight. The patient tolerated the procedure well and the lid speculum was removed. Intracameral injection of Vigamox 0.1 mL followed by a subtenon injection of Kenalog-40 0.2 mL were administered. The patient will be seen in the a.m.
[2025-04-29 10:14] VITALS: BP 97/58; PULSE 86; RESP 16; TEMP 36.4; O2SAT 97
== END 2025-04-29 10:20 | disposition home or self-care (01) ==
PROVIDERS: PCP Internal Medicine; Visit Provider Ophthalmology
PROC: (CPT 66985; principal; 2025-04-29 10:30)
DX: H25.11 Age-related nuclear cataract, right eye (principal); H54.7 Unspecified visual loss; H43.393 Other vitreous opacities, bilateral; E78.00 Pure hypercholesterolemia, unspecified; E11.9 Type 2 diabetes mellitus without complications; I25.10 Atherosclerotic heart disease of native coronary artery without angina pectoris; Z95.5 Presence of coronary angioplasty implant and graft; I48.91 Unspecified atrial fibrillation; I50.22 Chronic systolic (congestive) heart failure; I11.0 Hypertensive heart disease with heart failure; Z79.01 Long term (current) use of anticoagulants; Z79.84 Long term (current) use of oral hypoglycemic drugs; Z79.899 Other long term (current) drug therapy; Z87.891 Personal history of nicotine dependence
CPT/HCPCS: 66984; 82947; J3301; V2630

== ENCOUNTER 2025-05-13 09:46 | Day surgery (SDC) | payer MEDICARE, SELFPAY ==
[2025-04-24 10:48] VITALS: BMI 23.0
[2025-05-13 10:46] VITALS: PULSE 85; RESP 16; TEMP 36.1; O2SAT 100
[2025-05-13] MEDS: Tetracaine HCl/PF 0.5% Oph Sol 4 ML DROPS 1 DROP EYE-LEFT (10:49)
[2025-05-13] MEDS: Cyclopentolate 1 % Ophth Sol 2 ML DRPBTL 1 DROP EYE-LEFT ×3 (10:50→11:00)
[2025-05-13] MEDS: Tropicamide 1 % Ophth Sol 3 ML BTL 1 DROP EYE-LEFT ×3 (10:51→11:01)
[2025-05-13] MEDS: Ketorolac Tromethamine 0.5% Op 5 ML DROPS 1 DROP EYE-LEFT ×3 (10:53→11:01)
[2025-05-13] MEDS: Phenylephrine HCL 2.5% Oph SoL 2 ML BOTTLE 1 DROP EYE-LEFT ×3 (10:54→11:01)
--- NOTE | 2025-05-13 11:42 | MHC.SHP ---
Pre-Procedural Eval Section A - 24 Hr Update-Section A only Date of Service: 05/13/25 The patient is an INPATIENT: No Changes since office visit: No Cold of Flu in the past 2 weeks, No New Medical Problems, No Changes in Medication and No Patient answered all questions The patient has been examined within 24 hours of the surgical procedure. The History & Physical has been completed within 30 days and I have reviewed it.: Yes Section B - Complete if H&P > 30 days Chief Complaint: Age-related nuclear cataract, left eye Allergies: Allergies Allergy/AdvReac Type Severity Reaction Status Date / Time No Known Allergies Allergy Verified 04/29/25 09:12 Plan Diagnosis/Plan: Unchanged I have reviewed the history and physical and performed a pertinent physical examination on my patient. No changes have occurred unless specified. Time Spent With Patient Time: Total time managing care of this patient today ____ minutes.
--- NOTE | 2025-05-13 11:43 | HO.PNOPHT ---
Ophthalmology Procedure Procedure Date of Service: 05/13/25 Ophthalmology Viscoelastic: Healon Duet Dual Pack Pro Ophthalmology Lenses: IOL Acrysof MP - [id number] (21) Procedure Notes: PREOPERATIVE DIAGNOSIS: Decreased visual acuity left eye secondary to cataract POSTOPERATIVE DIAGNOSIS: Same PROCEDURE: Left cataract extraction with intraocular lens insertion SURGEON: Freeman Munoz M.D. ANESTHESIA: Topical ESTIMATED BLOOD LOSS: None COMPLICATIONS: None After obtaining informed consent, the patient was brought to the operation room suite and placed in the supine position. After adequate sedation per anesthesia, topical drops of Tetracaine were given to the left eye. The eye was then prepped and draped in the usual sterile fashion. The operating room microscope was then positioned over the operative eye and a lid speculum placed. A paracentesis was created. Viscoelastic was then instilled into the anterior chamber. A three plane incision was then created temporally, utilizing a 2.85 mm keratome. MPF Licocaine 0.7ml was given intracamal. Capsulotomy forceps were then utilized to create a circular tear capsulotomy. Hydrodissection and hydrodelineation were carried out until adequate mobilization of the nucleus occurred. Phacoemulsification was then utilized to remove the dense central nucleus followed by removal of the cortical material utilizing the automated aspiration irrigation unit. Viscoat elastic was instilled into the posterior capsular bag followed by placement of a posterior chamber intraocular lens without difficulty. The residual Viscoat elastic was then removed utilizing the automated IA machine. The wound was check and found to be watertight. The patient tolerated the procedure well and the lid speculum was removed. Intracameral injection of Vigamox 0.1 mL followed by a subtenon injection of Kenalog-40 0.2 mL were administered. The patient will be seen in the a.m.
[2025-05-13 12:10] VITALS: BP 97/59; PULSE 73; RESP 16; TEMP 36.3; O2SAT 100
== END 2025-05-13 12:14 | disposition home or self-care (01) ==
PROVIDERS: PCP Internal Medicine; Visit Provider Ophthalmology
PROC: (CPT 66985; principal; 2025-05-13 12:30)
DX: H25.12 Age-related nuclear cataract, left eye (principal); H54.7 Unspecified visual loss; H43.393 Other vitreous opacities, bilateral; I11.0 Hypertensive heart disease with heart failure; I50.22 Chronic systolic (congestive) heart failure; I25.10 Atherosclerotic heart disease of native coronary artery without angina pectoris; I48.0 Paroxysmal atrial fibrillation; E78.00 Pure hypercholesterolemia, unspecified; Z95.5 Presence of coronary angioplasty implant and graft; E11.9 Type 2 diabetes mellitus without complications; Z79.01 Long term (current) use of anticoagulants; Z79.84 Long term (current) use of oral hypoglycemic drugs; Z79.899 Other long term (current) drug therapy
CPT/HCPCS: 66984; J2003; J3301; V2630